=== PATIENT | male | born 1950 | race Caucasian/White ===

== ENCOUNTER → 2017-10-23 | Outpatient (CLI) | payer BC | LOC: BMCIMAGING 15:16 | PROVIDERS: ATTEND Family Medicine | DX: N28.9 Disorder of kidney and ureter, unspecified (principal); Z13.820 Encounter for screening for osteoporosis ==

== ENCOUNTER → 2017-12-22 | Outpatient (CLI) | payer BC | LOC: FIMAGING 07:59 | PROVIDERS: ATTEND Family Medicine | DX: M51.16 Intervertebral disc disorders with radiculopathy, lumbar region (principal) ==

== ENCOUNTER → 2018-07-30 | Outpatient (CLI) | payer BC, OTHER | LOC: FIMAGING 14:52 | PROVIDERS: ATTEND Family Medicine | DX: M25.462 Effusion, left knee (principal) ==

== ENCOUNTER → 2019-04-30 | Outpatient (CLI) | payer BC, OTHER | LOC: GIMAGING 10:35 ==